=== PATIENT | male | born 1980 | race Caucasian/White ===

== ENCOUNTER 2020-01-08 10:08 | Emergency (ER) | payer OTHER ==
[2020-01-08 10:15] VITALS: RESP 20; TEMP 97.9
--- NOTE | 2020-01-08 10:52 | ED ---
General Adult HPI - General Chief complaint: Urogenital Stated complaint: hernia Time Seen by Provider: 01/08/20 10:19 Source: patient, RN notes reviewed Mode of arrival: ambulatory Limitations: no limitations - History of Present Illness Initial comments: 39-year-old male presents to the emergency department for a chief complaint of left testicular pain and swelling. Patient states this has been ongoing for 2 days. He denies any injury. States he was moving some light weight items but that this did not start hurting until the next day. Denies urinary symptoms. Denies fevers or chills.Patient has no other complaints at this time including shortness of breath, chest pain, abdominal pain, nausea or vomiting, headache, or visual changes. - Related Data Previous Rx's Medication Instructions Recorded Levofloxacin [Levaquin] 500 mg PO DAILY 10 Days #10 tab 01/08/20 Allergies Allergy/AdvReac Type Severity Reaction Status Date / Time No Known Allergies Allergy Verified 01/08/20 10:14 Review of Systems ROS Statement: Those systems with pertinent positive or pertinent negative responses have been documented in the HPI. ROS Other: All systems not noted in ROS Statement are negative. Past Medical History Past Medical History: GERD/Reflux History of Any Multi-Drug Resistant Organisms: None Reported Additional Past Surgical History / Comment(s): COLONOSCOPY Past Anesthesia/Blood Transfusion Reactions: No Reported Reaction Past Psychological History: No Psychological Hx Reported Smoking Status: Current every day smoker Past Alcohol Use History: Occasional Past Drug Use History: Marijuana General Exam Limitations: no limitations General appearance: alert, in no apparent distress Head exam: Present: atraumatic, normocephalic, normal inspection Eye exam: Present: normal appearance, PERRL, EOMI. Absent: scleral icterus, conjunctival injection, periorbital swelling ENT exam: Present: normal exam, mucous membranes moist Neck exam: Present: normal inspection, full ROM. Absent: tenderness, meningismus, lymphadenopathy Respiratory exam: Present: normal lung sounds bilaterally. Absent: respiratory distress, wheezes, rales, rhonchi, stridor Cardiovascular Exam: Present: regular rate, normal rhythm, normal heart sounds. Absent: systolic murmur, diastolic murmur, rubs, gallop, clicks GI/Abdominal exam: Present: soft, normal bowel sounds. Absent: distended, tenderness, guarding, rebound, rigid exam: Present: testicular tenderness (Mild testicular tenderness. I do not see any significant edema or erythema.), other (Karen CAMPOS present for exam) Course Vital Signs 01/08/20 10:12 Temperature 97.9 F Pulse Rate 77 Respiratory 20 Rate Blood Pressure 129/82 O2 Sat by Pulse 97 Oximetry Medical Decision Making - Medical Decision Making Urinalysis is unremarkable. However she does have evidence of left epididymitis with trace left hydrocele, likely reactive. Patient is sexually active. Patient will be treated for both enteric organisms as well as ST eyes. He was given IM Rocephin as well as Levaquin twice a day 10 days. He will follow up with urology and primary care. He will return here for any worsening symptoms. I did recommend he refrain from sexual intercourse until he receives the results of this testing. - Lab Data Lab Results 01/08/20 Range/Units 11:00 Urine Color Yellow Urine Appearance Clear (Clear) Urine pH 7.0 (5.0-8.0) Ur Specific [place] 1.020 (1.001-1.035) Urine Protein Negative (Negative) Urine Glucose (UA) Negative (Negative) Urine Ketones Negative (Negative) Urine Blood Negative (Negative) Urine Nitrite Negative (Negative) Urine Bilirubin Negative (Negative) Urine Urobilinogen <2.0 (<2.0) mg/dL Ur Leukocyte Esterase Trace H (Negative) Urine RBC 1 (0-5) /hpf Urine WBC 6 H (0-5) /hpf Ur Squamous Epith Cells <1 (0-4) /hpf Urine Mucus Rare H (None) /hpf Disposition Clinical Impression: Epididymitis Disposition: ADMITTED IP TO THIS HOSP Condition: Fair Instructions (If sedation given, give patient instructions): Epididymitis (ED) Additional Instructions: Please take antibiotic once daily as directed. You were already given your dose today here at the emergency department. Follow-up with urology or primary care. If you have any worsening symptoms return to the emergency department. Prescriptions: Levofloxacin [Levaquin] 500 mg PO DAILY 10 Days #10 tab Is patient prescribed a controlled substance at d/c from ED?: No Referrals: Lakhwinder Beaver MD [REFERRING] - 1-2 days Dakotah Olson MD [STAFF PHYSICIAN] - 1-2 days Time of Disposition: 12:12
[2020-01-08 11:20] LABS: Appearance,Urine Clear (Clear); Bilirubin,Urine Negative (Negative); Blood,Urine Negative (Negative); Color,Urine Yellow; Glucose,Urine (UA) Negative (Negative); Ketones,Urine Negative (Negative); Leukocyte Esterase,Urine Trace (Negative); Mucus,Urine Rare /hpf; Nitrite,Urine Negative (Negative); Protein,Urine Negative (Negative); RBC,Urine 1 /hpf (0-5); Squamous Epithelial Cell,Urine <1 /hpf (0-4); Urobilinogen,Urine <2.0 mg/dL (<2.0); WBC,Urine 6 /hpf (0-5)
--- NOTE | 2020-01-08 11:39 | US ---
EXAMINATION TYPE: US groin LT DATE OF EXAM: 01/08/2020 COMPARISON: NONE CLINICAL HISTORY: pain swelling. Left groin pain Multiple lymph nodes noted left groin, largest = 1.9 x 0.8 cm. Fatty hilum is maintained. IMPRESSION: Multiple nonenlarged left inguinal lymph nodes are seen that appear morphologically norm al.
--- NOTE | 2020-01-08 11:41 | US ---
EXAMINATION TYPE: US scrotum with doppler. Grayscale and color Doppler Duplex imaging performed of horacio ruiz scrotum. DATE OF EXAM: 01/08/2020 COMPARISON: NONE CLINICAL HISTORY: pain swelling. Left testicle pain, edema x 4 to 5 days EXAM MEASUREMENTS: TESTICLES: Right Testicle: 4.4 x 2.2 x 3.8 cm Left Testicle: 4.8 x 2.3 x 3.5 cm EPIDIDYMIS HEAD: Right Epididymis: 1.1 cm Left Epididymis: 1.3 cm Doppler performed to assess for testicular vascularity; good bilateral color flow and waveforms are s een. There is no evidence of testicular torsion. Presence of hydroceles: small fluid collection medial to left testicle = 2.4cm Presence of varicoceles: prominent vessels lateral to left testicle Right epididymal cyst = 0.6cm, a benign finding. Enlarged and heterogenous left epididymis with increased vascularity IMPRESSION: Left epididymitis with trace left hydrocele, likely reactive.
[2020-01-08] MEDS ORDERED: LEVOFLOXACIN 500 MG TAB PO STA (11:50)
[2020-01-08] MEDS ORDERED: cefTRIAXone 250 MG VIAL IM STA (11:50)
[2020-01-08 12:41] VITALS: BP 122/82; PULSE 71
[2020-01-10 14:47] LABS: C. trachomatis,PCR Negative (Neg,Equiv); Chlamydia trachomatis Source Urine; N. gonorrhoeae,PCR Negative (Neg,Equiv); Neisseria Source Urine
== END 2020-01-08 12:48 | disposition other institution (70) ==
LOC: EC 10:08
DX: N45.1 Epididymitis (principal); N43.3 Hydrocele, unspecified; F17.200 Nicotine dependence, unspecified, uncomplicated
CPT/HCPCS: 81001; 87491; 87591; 87086; 93975; 76870; 76882; 99284; 96372; J0696; 87661

== ENCOUNTER 2020-02-22 16:59 | Emergency (ER) | payer OTHER ==
[2020-02-22 18:32] LABS: Appearance,Urine Clear (Clear); Bacteria,Urine Rare /hpf; Bilirubin,Urine Negative (Negative); Blood,Urine Negative (Negative); Calcium Oxalate Crystals,Urine Occasional /hpf; Color,Urine Yellow; Glucose,Urine (UA) Negative (Negative); Ketones,Urine Negative (Negative); Leukocyte Esterase,Urine Small (Negative); Mucus,Urine Rare /hpf; Nitrite,Urine Negative (Negative); Protein,Urine Negative (Negative); RBC,Urine 1 /hpf (0-5); Specific Gravity,Urine 1.018 (1.001-1.035); Squamous Epithelial Cell,Urine <1 /hpf (0-4); Urobilinogen,Urine <2.0 mg/dL (<2.0); WBC,Urine 6 /hpf (0-5)
--- NOTE | 2020-02-22 19:19 | CT ---
EXAMINATION TYPE: CT abdomen pelvis w con DATE OF EXAM: 02/22/2020 COMPARISON: None HISTORY: Left sided abdominal pain. Nausea. History of epididymitis. Testicular pain CT DLP: 1798.6 mGycm Automated exposure control for dose reduction was used. CONTRAST: Performed with IV Contrast, patient injected with 100 mL of Isovue 300. Lung bases are clear. There is no pleural effusion. Heart size is normal. There is no pericardial eff usion. Stomach appears normal. Liver spleen pancreas gallbladder appear normal. Gallbladder is contracted. Bile ducts are not dilate d. There is no adrenal mass. Kidneys show satisfactory contrast opacification. There is no hydronephrosi s. Delayed images show normal renal excretion. Ureters are not dilated. Bladder distends smoothly. Th ere is no inguinal hernia. There is no free fluid in the pelvis. There is normal-appearing appendix. There is some minimal small bowel mesenteric edema. There is no a scites or free air. There is no bowel obstruction. Lumbar vertebra have normal spacing and alignment. Bony pelvis appears intact. Exam limited slightly by motion. IMPRESSION: There is some minimal small bowel mesenteric edema of uncertain significance. No small bowel or large bowel abnormality identified. Normal appendix. No evidence of renal stone or obstruction. No evidenc e of inguinal hernia.
[2020-02-22 20:16] LABS: Basophils # (A) 0.1 k/uL (0-0.2); Basophils % (A) 1 %; Eosinophils # (A) 0.3 k/uL (0-0.7); Eosinophils % (A) 4 %; HCT 50.4 % (39.0-53.0); HGB 16.6 gm/dL (13.0-17.5); Lymphocytes # (A) 2.2 k/uL (1.0-4.8); Lymphocytes % (A) 32 %; MCH 32.6 pg (25.0-35.0); MCV 98.7 fL (80.0-100.0); Mean Platelet Volume 6.9; Monocytes # (A) 0.5 k/uL (0-1.0); Monocytes % (A) 7 %; Neutrophils # (A) 3.9 k/uL (1.3-7.7); Neutrophils % (A) 55 %; Platelet Count 277 k/uL (150-450); RDW 12.6 % (11.5-15.5); WBC 7.1 k/uL (3.8-10.6)
[2020-02-22 20:21] LABS: ALT 21 U/L (4-49); AST 34 U/L (17-59); African American GFR (CKD) >90 (>60 ml/min/1.73 sqM); Albumin 4.3 g/dL (3.5-5.0); Alkaline Phosphatase 70 U/L (38-126); Anion Gap 6 mmol/L; Blood Urea Nitrogen 11 mg/dL (9-20); Calcium 9.3 mg/dL (8.4-10.2); Carbon Dioxide 25 mmol/L (22-30); Chloride 107 mmol/L (98-107); Glucose 89 mg/dL (74-99); Non-African American GFR(CKD) >90 (>60 ml/min/1.73 sqM); Potassium 4.3 mmol/L (3.5-5.1); Sodium 138 mmol/L (137-145); Total Bilirubin 0.7 mg/dL (0.2-1.3)
--- NOTE | 2020-02-22 20:29 | US ---
EXAMINATION TYPE: US scrotum with doppler. Grayscale and color Doppler Duplex imaging performed of t he scrotum. DATE OF EXAM: 02/22/2020 COMPARISON: US, CT CLINICAL HISTORY: testicular pain. Left testicular pain x 1 day. EXAM MEASUREMENTS: TESTICLES: Right Testicle: 4.9 x 2.3 x 2.3 cm Left Testicle: 4.4 x 2.9 x 2.3 cm EPIDIDYMIS HEAD: Right Epididymis: 0.7 x 1.2 x 0.9 cm Left Epididymis: 0.7 x 1.1 x 1.0 cm Doppler performed to assess for testicular vascularity; good bilateral color flow and waveforms are s een. There is no evidence of testicular torsion. Presence of hydroceles: Right measures: 0.8 x 1.0 x 0.8 cm. Left measures: 1.6 x 0.4 x 0.4 cm. Presence of varicoceles: Prominent vessels lateral to left testicle 0.3 cm. Anechoic area seen right epididymal head: 0.5 x 0.7 x 0.4 cm. Left epididymis appears slightly enlarged and shows increased vascularity. IMPRESSION: There are bilateral hydroceles. No testicular torsion. Small right epididymal cyst noted. No evidence of testicular mass. There is symmetry of size of the left and right epididymis and I do not suspect epididymitis.
[2020-02-22 21:10] VITALS: BP 129/89; PULSE 74; RESP 17
[2020-02-22] MEDS ORDERED: CEPHALEXIN 500 MG CAP PO STA (21:49)
--- NOTE | 2020-02-22 21:52 | ED ---
Abdominal Pain HPI - General Chief Complaint: Abdominal Pain Stated Complaint: Infection Time Seen by Provider: 02/22/20 17:09 Source: patient Mode of arrival: ambulatory Limitations: no limitations - History of Present Illness Initial Comments: The patient is a 40-year-old male with no past medical history presents emergency Department with reported left testicular pain and left lower pubic pain. Patient was seen in the emergency department several weeks ago a similar complaint. He states the pain is similar in nature. He was placed on antibioti cs for epididymitis. Finish the course and states his pain mildly improved however it back. States it is most severe when he screening bike. He has not followed up with his primary care doctor. He denies any abnormal penile discharge or bleeding. No dysuria, hematuria or difficulty voiding. Denies diarrhea patient, melanotic stools or hematochezia. No concern for sexually transmitted infections. No history of kidney stones. Denies any back or flank pain. No fevers or chills. Denies nausea or vomiting. There are no other alleviating, precipitating or modifying factors - Related Data Previous Rx's Medication Instructions Recorded Levofloxacin [Levaquin] 500 mg PO DAILY 10 Days #10 tab 01/08/20 Cephalexin [Keflex] 500 mg PO Q6HR #28 cap 02/22/20 Allergies Allergy/AdvReac Type Severity Reaction Status Date / Time No Known Allergies Allergy Verified 02/22/20 17:06 Review of Systems ROS Statement: Those systems with pertinent positive or pertinent negative responses have been documented in the HPI. ROS Other: All systems not noted in ROS Statement are negative. Past Medical History Past Medical History: GERD/Reflux History of Any Multi-Drug Resistant Organisms: None Reported Additional Past Surgical History / Comment(s): COLONOSCOPY Past Anesthesia/Blood Transfusion Reactions: No Reported Reaction Past Psychological History: No Psychological Hx Reported Smoking Status: Current every day smoker Past Alcohol Use History: Occasional Past Drug Use History: Marijuana General Exam Limitations: no limitations General appearance: alert, in no apparent distress Head exam: Present: atraumatic, normocephalic, normal inspection Eye exam: Present: normal appearance, PERRL, EOMI. Absent: scleral icterus, conjunctival injection, periorbital swelling ENT exam: Present: normal exam, mucous membranes moist Neck exam: Present: normal inspection. Absent: tenderness, meningismus, lymphadenopathy Respiratory exam: Present: normal lung sounds bilaterally. Absent: respiratory distress, wheezes, rales, rhonchi, stridor Cardiovascular Exam: Present: regular rate, normal rhythm, normal heart sounds. Absent: systolic murmur, diastolic murmur, rubs, gallop, clicks GI/Abdominal exam: Present: soft, tenderness (left lower quadrant), normal bowel sounds. Absent: distended, guarding, rebound, rigid External exam: Present: normal external exam, other (tenderness left posterior testicle). Absent: erythema, swelling Extremities exam: Present: normal inspection, full ROM, normal capillary refill. Absent: tenderness, pedal edema, joint swelling, calf tenderness Back exam: Present: normal inspection Neurological exam: Present: alert, oriented X3, CN II-XII intact Psychiatric exam: Present: normal affect, normal mood Skin exam: Present: warm, dry, intact, normal color. Absent: rash Course Vital Signs 02/22/20 02/22/20 02/22/20 17:02 21:07 22:07 Temperature 98.1 F 97.7 F Pulse Rate 88 74 Respiratory 18 17 Rate Blood Pressure 130/81 129/89 O2 Sat by Pulse 98 99 Oximetry Medical Decision Making - Medical Decision Making Upon arrival the patient is placed into room 22. A thorough history and physical exam is performed. Peripheral IV was established. Laboratory studies were conducted. Urinalysis shows 6 white blood cells with occasional calcium oxide crystals and rare bacteria. Specimen is sent for urine culture. Ultrasound of the patient's scrotum demonstrates bilateral hydroceles. Small right epididymal cyst. No evidence of testicular mass or epididymitis. Good flow bilaterally. I discussed results of the patient. I did give him a dose of Keflex. Patient will have a prescription for Keflex and to the pharmacy. I do recommend he follow up with urology. I recommended tight fitting briefs for elevation of the to back. Return to the emergency room for any new or worsening symptoms. Patient was in agreement with that he was discharged home in stable condition - Lab Data Result diagrams: 02/22/20 18:36 02/22/20 18:36 Lab Results 02/22/20 02/22/20 02/22/20 Range/Units 17:34 18:36 18:36 WBC 7.1 (3.8-10.6) k/uL RBC 5.10 (4.30-5.90) m/uL Hgb 16.6 (13.0-17.5) gm/dL Hct 50.4 (39.0-53.0) % MCV 98.7 (80.0-100.0) fL MCH 32.6 (25.0-35.0) pg MCHC 33.0 (31.0-37.0) g/dL RDW 12.6 (11.5-15.5) % Plt Count 277 (150-450) k/uL Neutrophils % 55 % Lymphocytes % 32 % Monocytes % 7 % Eosinophils % 4 % Basophils % 1 % Neutrophils # 3.9 (1.3-7.7) k/uL Lymphocytes # 2.2 (1.0-4.8) k/uL Monocytes # 0.5 (0-1.0) k/uL Eosinophils # 0.3 (0-0.7) k/uL Basophils # 0.1 (0-0.2) k/uL Sodium 138 (137-145) mmol/L Potassium 4.3 (3.5-5.1) mmol/L Chloride 107 (98-107) mmol/L Carbon Dioxide 25 (22-30) mmol/L Anion Gap 6 mmol/L BUN 11 (9-20) mg/dL Creatinine 0.83 (0.66-1.25) mg/dL Est GFR (CKD-EPI)AfAm >90 (>60 ml/min/1.73 sqM) Est GFR (CKD-EPI)NonAf >90 (>60 ml/min/1.73 sqM) Glucose 89 (74-99) mg/dL Calcium 9.3 (8.4-10.2) mg/dL Total Bilirubin 0.7 (0.2-1.3) mg/dL AST 34 (17-59) U/L ALT 21 (4-49) U/L Alkaline Phosphatase 70 (38-126) U/L Total Protein 7.0 (6.3-8.2) g/dL Albumin 4.3 (3.5-5.0) g/dL Lipase 116 (23-300) U/L Urine Color Yellow Urine Appearance Clear (Clear) Urine pH 6.0 (5.0-8.0) Ur Specific [place] 1.018 (1.001-1.035) Urine Protein Negative (Negative) Urine Glucose (UA) Negative (Negative) Urine Ketones Negative (Negative) Urine Blood Negative (Negative) Urine Nitrite Negative (Negative) Urine Bilirubin Negative (Negative) Urine Urobilinogen <2.0 (<2.0) mg/dL Ur Leukocyte Esterase Small H (Negative) Urine RBC 1 (0-5) /hpf Urine WBC 6 H (0-5) /hpf Ur Squamous Epith Cells <1 (0-4) /hpf Calcium Oxalate Crystal Occasional H (None) /hpf Urine Bacteria Rare H (None) /hpf Urine Mucus Rare H (None) /hpf Disposition Clinical Impression: Bilateral hydrocele, Epididymal cyst, Abnormal urinalysis Disposition: HOME SELF-CARE Condition: Stable Instructions (If sedation given, give patient instructions): Testicle Pain (ED) Additional Instructions: Please follow-up with your primary care doctor in 2-4 days. Call to make an appointment with the urologist. Return to the emergency room for any new or worsening symptoms Prescriptions: Cephalexin [Keflex] 500 mg PO Q6HR #28 cap Is patient prescribed a controlled substance at d/c from ED?: No Referrals: None,Stated [Primary Care Provider] - 1-2 days Tavo Alcantara MD [STAFF PHYSICIAN] - 1-2 days Time of Disposition: 21:52
[2020-02-22 22:09] VITALS: TEMP 97.7
== END 2020-02-22 22:08 | disposition home or self-care (01) ==
LOC: EC 16:59
DX: N43.3 Hydrocele, unspecified (principal); N50.3 Cyst of epididymis; R82.90 Unspecified abnormal findings in urine; F17.200 Nicotine dependence, unspecified, uncomplicated
CPT/HCPCS: 36415; 80053; 83690; 85025; 81001; 87086; 93975; 76870; 74177; 99284; Q9967